=== PATIENT | male | born 1980 | race Caucasian/White ===

== ENCOUNTER 2017-05-16 12:11 | Emergency (ER) | payer SELFPAY ==
[~2017-05-16] VITALS: Ht 183.5 cm; Wt 80.0 kg
[2017-05-16] MEDS ORDERED: NEOMYCIN/POLYMYXIN B/HYDROCORT 10 ML OTIC SOLUTION AD ONE (13:15)
[2017-05-16 14:17] VITALS: BP 131/79
== END 2017-05-16 14:30 | disposition home or self-care (01) ==
LOC: EMS 12:14
DX: H60.91 Unspecified otitis externa, right ear (principal)
CPT/HCPCS: 99283